=== PATIENT | female | born 2000 | race Caucasian/White ===

== ENCOUNTER 2022-06-25 07:08 | Emergency (ER) | payer BC, OTHER ==
[2022-06-25] MEDS ORDERED: BENADRYL25 MG PO (08:45)
[2022-06-25] MEDS ORDERED: MEDROL DOSEPAK 24 MG PO (08:45)
== END 2022-06-25 09:20 | disposition home or self-care (01) ==
LOC: ER1 07:08
DX: T78.40XA Allergy, unspecified, initial encounter (principal); R21 Rash and other nonspecific skin eruption
CPT/HCPCS: 96372; 99282; J2930